=== PATIENT | female | born 1965 | race African-American/Black ===

== ENCOUNTER 2016-12-27 18:17 | Emergency (ER) | payer OTHER, MEDICAID ==
[~2016-12-27 18:17] MED LIST: ADVAI100I PO; CARV10; CLON0.5T16 PO; DUONI NEB; FLUT1INH; HYDR10SO PO; MAXZ PO; MONT10TA2 PO; NORV5TAB PO; ZITH250T PO
[2016-12-27 18:34] VITALS: BP 162/90; PULSE 95; RESP 16; TEMP 98.5; O2SAT 96
[2016-12-27] MEDS ORDERED: CARV12.5 PO (21:39)
[2016-12-27] MEDS ORDERED: ALBUAER3 INH (21:39)
[2016-12-27] MEDS ORDERED: MONT10TA2 PO (21:39)
[2016-12-27] MEDS ORDERED: TRIA1TAB5 PO (21:39)
[2016-12-27] MEDS ORDERED: ADVA500A INH (21:39)
[2016-12-27] MEDS ORDERED: IPRASOL INH (21:39)
[2016-12-27] MEDS ORDERED: HYDR-2374 PO (21:39)
[2016-12-27] MEDS ORDERED: LORA-475 PO (21:39)
[2016-12-27] MEDS ORDERED: NIFE10 PO (21:39)
[2016-12-27] MEDS ORDERED: DEXAMETHASONE SOD PHOS 4 MG/ML VIAL IM ONE (21:45)
[2016-12-27 21:50] VITALS: O2SAT 94
[2016-12-27] MEDS: RESP: ALBUTEROL 2.5 MG/IPRATROPIUM 0.5 MG NEB (SCH) INH (22:00)
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
[2016-12-27] MEDS ORDERED: PRED20 PO (22:21)
--- NOTE | 2016-12-28 09:26 | EKG ---
Date Performed: 12/27/2016 Time Performed: 21:24:13 PTAGE: 51 years EKG: Sinus rhythm NORMAL ECG PREVIOUS TRACING : 11/14/2014 17.10 DOCTOR: Xu Coley Interpretating Date/Time 12/28/2016 09:25:14
== END 2016-12-27 22:43 | disposition home or self-care (01) ==
LOC: NEPE 18:17
DX: J45.901 Unspecified asthma with (acute) exacerbation (principal); R52 Pain, unspecified; V89.2XXA Person injured in unspecified motor-vehicle accident, traffic, initial encounter
CPT/HCPCS: 93005; 94640; 94664; 96372; 99284; J1100

== ENCOUNTER 2017-08-28 17:26 | Observation (INO) | payer MEDICAID ==
[2017-08-28] VITALS (9 sets, daily range): BP systolic 136–174; BP diastolic 89–112; PULSE 83–93; RESP 16–22; TEMP 98.1–98.6; O2SAT 94–97
[~2017-08-28 17:26] MED LIST changes: +ADVA500A INH; -ADVAI100I PO; +ALBUAER3 INH; -CARV10; +CARV12.5 PO; -CLON0.5T16 PO; -DUONI NEB; -FLUT1INH; +HYDR-2374 PO; -HYDR10SO PO; +IPRASOL INH; +LORA-475 PO; +NIFE10 PO; -NORV5TAB PO; +TRIA1TAB5 PO; -ZITH250T PO
[2017-08-28] MEDS ORDERED: DOXY1CAP74 PO (17:42)
[2017-08-28] MEDS ORDERED: ALPR.5 PO (17:42)
[2017-08-28] MEDS ORDERED: SODIUM CHLORID 0.9% 500 ML INJ 500 ML IV ONE (17:45)
[2017-08-28] MEDS ORDERED: ASPIRIN 81 MG CHEW TAB PO ONE (17:45)
[2017-08-28] MEDS ORDERED: NITROGLYCERIN 2% OINT 1 GM PACKET TOP ONE (17:45)
[2017-08-28] MEDS ORDERED: ONDANSETRON HCL 4 MG/2 ML VIAL IV PUSH ONE (17:45)
[2017-08-28] MEDS ORDERED: SODIUM CHLORIDE 0.9% FLUSH 10 ML FLUSH IVF PRN (17:45)
[2017-08-28] MEDS ORDERED: MORPHINE SULFATE 4 MG/ML INJ IV PUSH ONE (17:45)
--- NOTE | 2017-08-28 18:01 | PD ---
HPI Chief Complaint: Cardiac Complaint Time Seen by Provider: 17:32 Travel History International Travel<30 days: No Contact w/Intl Traveler<30days: No Traveled to known affect area: No History of Present Illness HPI The patient is a 52-year-old female who presents to the emergency department for chest pain. The patient states she developed chest pain on Friday. The chest pain is substernal, nonradiating, and associated with shortness of breath. The patient describes the chest pain as sharp, dull, worse with walking and lying supine as well as inspiration. She does complain of mild shortness of breath and nausea but denies any vomiting. She does complain of feeling warm but denies any diaphoresis. The patient does have a history of hypertension, remote tobacco use, quit smoking 5-6 years ago. She denies any known history of coronary artery disease, diabetes, or hyperlipidemia. She denies any significant family medical history for early coronary artery disease or DC. The patient states she has never had a stress test in the past. She is currently followed by her primary physician, Dr. Dodge. The patient denies any history of pulmonary embolism, DVT, recent surgery, recent hospitalizations, or recent prolonged travel. Symptoms are moderate. The patient denies any recent edema or swelling to the lower extremities. PFSH Past Medical History Asthma: Yes Autoimmune Disease: No Blood Disorders: No Bipolar Disorder: Yes Anxiety: Yes Depression: No Heart Rhythm Problems: No Cancer: No Cardiovascular Problems: Yes (HTN) High Cholesterol: No Chemotherapy: No Chest Pain: No Congestive Heart Failure: No COPD: No Diabetes: No Diminished Hearing: No Endocrine: No Gastrointestinal Disorders: No GERD: Yes Genitourinary: No Headaches: Yes Hypertension: Yes Immune Disorder: No Implanted Vascular Access Dvce: No Musculoskeletal: Yes Neurologic: No Psychiatric: No Reproductive: No Respiratory: Yes Immunizations Current: Yes Pneumonia: Yes (fungal pneumonia, had bronchoscopy september 2016) Radiation Therapy: No Sickle Cell Disease: No Sleep Apnea: No Thyroid Disease: No PNEUMOCCOCAL Vaccine (Year): 2009 ?: Unknown Menopausal: Yes : 4 Para: 4 Tubal Ligation: Yes Past Surgical History Section: Yes Gynecologic Surgery: Yes Hysterectomy: Yes (partial) Other Surgery: Yes (PARTIAL HYSTERECTOMY, TUBAL, ) Social History Alcohol Use: No Tobacco Use: No Substance Use: No Allergies-Medications (Allergen,Severity, Reaction): Coded Allergies: acetaminophen (Unverified Allergy, Severe, RASH, 08/28/17) cephalexin (Unverified Allergy, Severe, RASH, 08/28/17) penicillin G (Unverified Allergy, Severe, Rash, 08/28/17) propoxyphene (Unverified Allergy, Severe, RASH, 08/28/17) tramadol (Unverified Allergy, Severe, Rash, 08/28/17) clindamycin (Unverified Allergy, Unknown, Itching, 08/28/17) SHARP ABD PAIN Reported Meds & Prescriptions Reported Meds & Active Scripts Active Reported Doxycycline 40 Mg Cap 40 Mg PO DAILY Xanax (Alprazolam) 0.5 Mg Tab 0.5 Mg PO Q4H PRN Proair Hfa 8.5 GM Inh (Albuterol Sulfate) 90 Mcg/Act Aer 2 Puff INH Q4-6H PRN 108 mcg/actuation Triamterene-Hydrochlorothiazide 75-50 Mg Tab 1 Tab PO DAILY Hydrocodone-Acetaminophen 10-300 Tab 1 Tab PO Q4H PRN Advair Diskus Inh (Fluticasone-Salmeterol Inh) 500-50 Mcg/Blist Aer 1 Puff INH BID Rinse mouth after use. Coreg (Carvedilol) 12.5 Mg Tab 10 Mg PO BID Duoneb (Ipratropium-Albuterol Neb) 0.5-2.5 Mg/3 Ml Neb 1 Nebule INH Q6HR NEB Review of Systems Except as stated in HPI: all other systems reviewed are Neg General / Constitutional: No: Fever HENT: No: Lightheadedness Cardiovascular: Positive: Chest Pain or Discomfort, Dyspnea on exertion Respiratory: Positive: Shortness of Breath Gastrointestinal: Positive: Nausea, Indigestion (History of GERD with different symptoms), No: Vomiting Musculoskeletal: No: Weakness, Edema Neurologic: No: Dizziness Physical Exam Narrative GENERAL: Awake, alert, pleasant 52-year-old female who appears her stated age and is in no acute respiratory distress. SKIN: Focused skin assessment warm/dry. Multiple tattoos noted. HEAD: Atraumatic. Normocephalic. EYES: Pupils equal and round. No scleral icterus. No injection or drainage. ENT: No nasal bleeding or discharge. Mucous membranes pink and moist. NECK: Trachea midline. No JVD. CARDIOVASCULAR: Regular rate and rhythm. No murmur appreciated. RESPIRATORY: No accessory muscle use. Prolonged expiratory phase with scattered wheezes. GASTROINTESTINAL: Abdomen soft, non-tender, nondistended. No rebound tenderness. MUSCULOSKELETAL: No obvious deformities. No clubbing. No cyanosis. No edema. Calves are soft bilaterally. NEUROLOGICAL: Awake and alert. No obvious cranial nerve deficits. Motor grossly within normal limits. Normal speech. PSYCHIATRIC: Appropriate mood and affect; insight and judgment normal. Data Data Last Documented VS Vital Signs Date Time Temp Pulse Resp B/P (MAP) Pulse Ox O2 Delivery O2 Flow Rate FiO2 08/28/17 18:05 156/102 (120) 08/28/17 17:54 96 Room Air 08/28/17 17:28 98.6 93 22 Orders Orders Electrocardiogram (08/28/17 17:42) Ckmb (Isoenzyme) Profile (08/28/17 17:42) Complete Blood Count With Diff (08/28/17 17:42) Comprehensive Metabolic Panel (08/28/17 17:42) D-Dimer (08/28/17 17:42) Magnesium (Mg) (08/28/17 17:42) Prothrombin Time / Inr (Pt) (08/28/17 17:42) Act Partial Throm Time (Ptt) (08/28/17 17:42) Troponin I (08/28/17 17:42) Lipase (08/28/17 17:42) Chest, Single Ap (08/28/17 17:42) Ecg Monitoring (08/28/17 17:42) Bilateral Bp Monitoring (08/28/17 17:42) Iv Access Insert/Monitor (08/28/17 17:42) Oximetry (08/28/17 17:42) Oxygen Administration (08/28/17 17:42) Aspirin Chew (Aspirin Chew) (08/28/17 17:45) Morphine Inj (Morphine Inj) (08/28/17 17:45) Nitroglycerin 2% Oint (Nitroglycerin 2% (08/28/17 17:45) Sodium Chloride 0.9% Flush (Ns Flush) (08/28/17 17:45) Sodium Chlorid 0.9% 500 Ml Inj (Ns 500 M (08/28/17 17:45) Ondansetron Inj (Zofran Inj) (08/28/17 17:45) Ct Pulmonary Angiogram (08/28/17 ) Labs Laboratory Tests Test 08/28/17 17:49 White Blood Count 11.4 TH/MM3 Red Blood Count 5.22 MIL/MM3 Hemoglobin 13.5 GM/DL Hematocrit 41.7 % Mean Corpuscular Volume 79.9 FL Mean Corpuscular Hemoglobin 25.8 PG Mean Corpuscular Hemoglobin Concent 32.3 % Red Cell Distribution Width 17.6 % Platelet Count 341 TH/MM3 Mean Platelet Volume 8.6 FL Neutrophils (%) (Auto) 76.1 % Lymphocytes (%) (Auto) 14.1 % Monocytes (%) (Auto) 8.2 % Eosinophils (%) (Auto) 1.1 % Basophils (%) (Auto) 0.5 % Neutrophils # (Auto) 8.7 TH/MM3 Lymphocytes # (Auto) 1.6 TH/MM3 Monocytes # (Auto) 0.9 TH/MM3 Eosinophils # (Auto) 0.1 TH/MM3 Basophils # (Auto) 0.1 TH/MM3 CBC Comment DIFF FINAL Differential Comment Prothrombin Time 10.5 SEC Prothromb Time International Ratio 1.0 RATIO Activated Partial Thromboplast Time 29.4 SEC D-Dimer Quantitative (PE/DVT) 1.68 MG/L FEU Alanine Aminotransferase (ALT/SGPT) 20 U/L MDM Medical Decision Making Medical Screen Exam Complete: Yes Emergency Medical Condition: Yes Medical Record Reviewed: Yes Interpretation(s) EKG reveals normal sinus rhythm with a rate of 93. Nonspecific T-wave changes. Differential Diagnosis Differential diagnosis includes acute coronary syndrome, pulmonary embolism GERD , esophageal spasm, pericarditis, myocarditis, pancreatitis, musculoskeletal pain, asthma exacerbation. Narrative Course IV was established, labs are drawn and sent, and the patient was placed on cardiac telemetry monitoring and continuous pulse oximetry monitoring. EKG was ordered and interpreted. 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 Chest x-ray was obtained. The patient did have some wheezing, however, she states this is different than her normal asthma exacerbations. She was administered 1 DuoNeb, steroids were held. D-dimer was sent to lab as patient did have elevated heart rate with shortness of breath and pleuritic chest pain. The patient's d-dimer was positive, therefore, CT pulmonary angiogram was ordered. Patient was signed out to the oncoming physician at 7 AM with laboratory evaluation and pulmonary angiogram Diagnosis Primary Impression: Chest pain Qualified Codes: R07.9 - Chest pain, unspecified Condition: Stable Livan Castellano MD August 28, 2017 18:01
[2017-08-28 18:22] LABS: AUTOMATED NEUTROPHIL # 8.7 TH/MM3 (1.8-7.7); BASOPHIL # 0.1 TH/MM3 (0-0.2); BASOPHIL % 0.5 % (0.0-2.0); EOSINOPHIL # 0.1 TH/MM3 (0-0.4); EOSINOPHIL % 1.1 % (0.0-4.0); HEMATOCRIT 41.7 % (35.0-46.0); HEMOGLOBIN 13.5 GM/DL (11.6-15.3); LYMPH % 14.1 % (9.0-44.0); LYMPHOCYTE # 1.6 TH/MM3 (1.0-4.8); MEAN CELL VOLUME 79.9 FL (80.0-100.0); MEAN CORPUSCULAR HEMOGLOBIN 25.8 PG (27.0-34.0); MEAN CORPUSCULAR HGB CONC 32.3 % (32.0-36.0); MEAN PLATELET VOLUME 8.6 FL (7.0-11.0); MONO % 8.2 % (0.0-8.0); MONOCYTE # 0.9 TH/MM3 (0-0.9); NEUT % 76.1 % (16.0-70.0); PLATELET COUNT 341 TH/MM3 (150-450); RED BLOOD COUNT 5.22 MIL/MM3 (4.00-5.30); RED CELL DISTRIBUTION WIDTH 17.6 % (11.6-17.2); WHITE BLOOD COUNT 11.4 TH/MM3 (4.0-11.0)
[2017-08-28 18:36] LABS: PROTHROMBIN TIME - PATIENT 10.5 SEC (9.8-11.6)
[2017-08-28 18:39] LABS: D-DIMER 1.68 MG/L FEU (0.00-0.50)
[2017-08-28 18:42] LABS: ALT (GPT) 20 U/L (10-53)
[2017-08-28 18:46] LABS: ALKALINE PHOSPHATASE 123 U/L (45-117); TOTAL BILIRUBIN ADULT 0.3 MG/DL (0.2-1.0); TOTAL PROTEIN 8.2 GM/DL (6.4-8.2); TROPONIN I LESS THAN 0.02 NG/ML (0.02-0.05)
--- NOTE | 2017-08-28 18:54 | RADRPT ---
EXAM DATE/TIME: 08/28/2017 18:19 [facility] COMPARISON: No previous studies available for comparison. INDICATIONS : Chest pain. MEDICAL HISTORY : Hypertension. SURGICAL HISTORY : None. ENCOUNTER: Initial ACUITY: 1 day PAIN SCORE: 9/10 LOCATION: Bilateral chest FINDINGS: A single view of the chest demonstrates cardiomegaly. Tortuous aorta. Mild basilar atelectasis. No ef fusion or pneumothorax. CONCLUSION: 1. Cardiomegaly with minimal basilar atelectasis. Tortuous aorta. Dexter Stern MD on August 28, 2017 at 18:50 Board Certified Radiologist. This report was verified electronically.
--- NOTE | 2017-08-28 19:19 | PD ---
Physical Exam Date Seen by Provider: August 28, 2017 Time Seen by Provider: 19:30 Narrative pt signed out to me at 700pm and I am to follow the CTA and admit for CP if CTA negative for PE .. The patient is a 52-year-old female who presents to the emergency department for chest pain. The patient states she developed chest pain on Friday. and history of Asthma but this CP not tightness like her regular Asthma tightness D-Dimer sent and was negative and CTA ordered by Gray for PE rule out Data Data Last Documented VS Vital Signs Date Time Temp Pulse Resp B/P (MAP) Pulse Ox O2 Delivery O2 Flow Rate FiO2 08/28/17 20:49 83 18 152/102 (119) 97 Room Air 08/28/17 17:28 98.6 Orders Orders Electrocardiogram (08/28/17 17:42) Ckmb (Isoenzyme) Profile (08/28/17 17:42) Complete Blood Count With Diff (08/28/17 17:42) Comprehensive Metabolic Panel (08/28/17 17:42) D-Dimer (08/28/17 17:42) Magnesium (Mg) (08/28/17 17:42) Prothrombin Time / Inr (Pt) (08/28/17 17:42) Act Partial Throm Time (Ptt) (08/28/17 17:42) Troponin I (08/28/17 17:42) Lipase (08/28/17 17:42) Chest, Single Ap (08/28/17 17:42) Ecg Monitoring (08/28/17 17:42) Bilateral Bp Monitoring (08/28/17 17:42) Iv Access Insert/Monitor (08/28/17 17:42) Oximetry (08/28/17 17:42) Oxygen Administration (08/28/17 17:42) Aspirin Chew (Aspirin Chew) (08/28/17 17:45) Morphine Inj (Morphine Inj) (08/28/17 17:45) Nitroglycerin 2% Oint (Nitroglycerin 2% (08/28/17 17:45) Sodium Chloride 0.9% Flush (Ns Flush) (08/28/17 17:45) Sodium Chlorid 0.9% 500 Ml Inj (Ns 500 M (08/28/17 17:45) Ondansetron Inj (Zofran Inj) (08/28/17 17:45) Ct Pulmonary Angiogram (08/28/17 ) CKMB (08/28/17 17:49) CKMB% (08/28/17 17:49) Iohexol 350 Inj (Omnipaque 350 Inj) (08/28/17 20:26) Levofloxacin 750 Mg Premix Inj (Levaquin (08/28/17 21:00) Ketorolac Inj (Toradol Inj) (08/28/17 21:15) Troponin I (08/28/17 21:05) Electrocardiogram (08/28/17 ) Ckmb (Isoenzyme) Profile (08/28/17 21:05) Admit Order (Ed Use Only) (08/28/17 22:00) CKMB (08/28/17 21:05) CKMB% (08/28/17 21:05) Labs Laboratory Tests Test 08/28/17 17:49 08/28/17 21:05 White Blood Count 11.4 TH/MM3 Red Blood Count 5.22 MIL/MM3 Hemoglobin 13.5 GM/DL Hematocrit 41.7 % Mean Corpuscular Volume 79.9 FL Mean Corpuscular Hemoglobin 25.8 PG Mean Corpuscular Hemoglobin Concent 32.3 % Red Cell Distribution Width 17.6 % Platelet Count 341 TH/MM3 Mean Platelet Volume 8.6 FL Neutrophils (%) (Auto) 76.1 % Lymphocytes (%) (Auto) 14.1 % Monocytes (%) (Auto) 8.2 % Eosinophils (%) (Auto) 1.1 % Basophils (%) (Auto) 0.5 % Neutrophils # (Auto) 8.7 TH/MM3 Lymphocytes # (Auto) 1.6 TH/MM3 Monocytes # (Auto) 0.9 TH/MM3 Eosinophils # (Auto) 0.1 TH/MM3 Basophils # (Auto) 0.1 TH/MM3 CBC Comment DIFF FINAL Differential Comment Prothrombin Time 10.5 SEC Prothromb Time International Ratio 1.0 RATIO Activated Partial Thromboplast Time 29.4 SEC D-Dimer Quantitative (PE/DVT) 1.68 MG/L FEU Blood Urea Nitrogen 19 MG/DL Creatinine 1.07 MG/DL Random Glucose 75 MG/DL Total Protein 8.2 GM/DL Albumin 3.8 GM/DL Calcium Level 10.2 MG/DL Magnesium Level 2.0 MG/DL Alkaline Phosphatase 123 U/L Aspartate Amino Transf (AST/SGOT) 23 U/L Alanine Aminotransferase (ALT/SGPT) 20 U/L Total Bilirubin 0.3 MG/DL Sodium Level 139 MEQ/L Potassium Level 3.4 MEQ/L Chloride Level 102 MEQ/L Carbon Dioxide Level 27.8 MEQ/L Anion Gap 9 MEQ/L Estimat Glomerular Filtration Rate 65 ML/MIN Total Creatine Kinase 224 U/L 169 U/L Creatine Kinase MB 3.8 NG/ML 3.1 NG/ML Creatine Kinase MB % 1.7 % Troponin I LESS THAN 0.02 NG/ML LESS THAN 0.02 NG/ML Lipase 139 U/L MDM Supervised Visit with ELISA: No Narrative Course PNA NO PE CP could be PNA or both cad ischemia and PNA admit CP center for serial trop cards consult Diagnosis Primary Impression: Chest pain Additional Impression: Pneumonia Qualified Codes: J18.9 - Pneumonia, unspecified organism Admitting Information Admitting Physician Requests: Observation Condition: Stable Jayme George MD August 28, 2017 19:19
[2017-08-28 19:27] LABS: ALBUMIN 3.8 GM/DL (3.4-5.0); AST (GOT) 23 U/L (15-37); BICARBONATE 27.8 MEQ/L (21.0-32.0); BLOOD UREA NITROGEN 19 MG/DL (7-18); CALCIUM 10.2 MG/DL (8.5-10.1); CHLORIDE 102 MEQ/L (98-107); CREATININE 1.07 MG/DL (0.50-1.00); GLOMERULAR FILTRATION RATE 65 ML/MIN (>89); GLUCOSE,RANDOM 75 MG/DL (74-106); SODIUM (NA) 139 MEQ/L (136-145)
[2017-08-28] MEDS ORDERED: IOHEXOL 350 MG/ML 10 ML VIAL (for RAD DIAG) IVCONTRAST ONE (20:26)
--- NOTE | 2017-08-28 20:28 | RADRPT ---
EXAM DATE/TIME: 08/28/2017 19:52 [facility] COMPARISON: No previous studies available for comparison. INDICATIONS : Chest pain IV CONTRAST: 70 cc Omnipaque 350 (iohexol) IV RADIATION DOSE: 16.20 CTDIvol (mGy) MEDICAL HISTORY : Hypertension. Asthma SURGICAL HISTORY : Hysterectomy. Tubal ligation. section. ENCOUNTER: Initial ACUITY: 3 days PAIN SCALE: 9/10 LOCATION: Bilateral chest TECHNIQUE: Volumetric scanning of the chest was performed using a pulmonary embolism protocol MIP images were re constructed. Using automated exposure control and adjustment of the mA and/or kV according to patien t size, radiation dose was kept as low as reasonably achievable to obtain optimal diagnostic quality images. DICOM format image data is available electronically for review and comparison. Follow-up recommendations for detected pulmonary nodules are based at a minimum on nodule size and pa tient risk factors according to Fleischner Society Guidelines. FINDINGS: No filling defects identified to suggest embolic disease. There is patchy airspace consolidation in b oth lungs predominantly in the right middle lobe and lingula and also at the lung bases. Is also some distal airway disease and mild bronchiectasis. Tortuous aorta. No pleural or pericardial effusion. CONCLUSION: 1. Negative for pulmonary embolus. 2. Patchy bronchopneumonia in the lungs. Mild bronchiectasis and distal airway disease. Dexter Stern MD on August 28, 2017 at 20:23 Board Certified Radiologist. This report was verified electronically.
[2017-08-28] MEDS ORDERED: LEVOFLOXACIN 750 MG PREMIX INJ 150 ML IV ONE (21:00)
[2017-08-28] MEDS ORDERED: KETOROLAC TROMETHAMINE 30 MG/ML (IVP) VIAL IV PUSH ONE (21:15)
[2017-08-28 22:06] LABS: TROPONIN I LESS THAN 0.02 NG/ML (0.02-0.05)
[2017-08-28] MEDS ORDERED: SODIUM CHLORIDE 0.9% FLUSH 10 ML FLUSH IV FLUSH PRN (23:15)
[2017-08-29] MEDS ORDERED: ONDANSETRON HCL 4 MG/2 ML VIAL IV PUSH PRN (00:15)
[2017-08-29 01:55] LABS: TROPONIN I LESS THAN 0.02 NG/ML (0.02-0.05)
[2017-08-29 02:14] VITALS: PULSE 78
[2017-08-29 04:05] VITALS: BP 152/113; PULSE 86; RESP 17; TEMP 98.1; O2SAT 95
[2017-08-29] MEDS ORDERED: MORPHINE SULFATE 4 MG/ML INJ IV PRN (04:15)
[2017-08-29] MEDS ORDERED: IBUPROFEN 400 MG TAB PO PRN (04:15)
[2017-08-29 04:30] VITALS: PULSE 77
[2017-08-29 07:09] VITALS: BP 134/96; PULSE 80; RESP 20; TEMP 98; O2SAT 96
[2017-08-29] MEDS ORDERED: NITROGLYCERIN 0.4 MG SL 25 TABS/BTL SL PRN (07:45)
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
[2017-08-29] MEDS ORDERED: ASPIRIN 325 MG TAB PO SCH (09:00)
[2017-08-29] MEDS ORDERED: SODIUM CHLORIDE 0.9% FLUSH 10 ML FLUSH IV FLUSH SCH (09:00)
[2017-08-29] MEDS ORDERED: KETOROLAC TROMETHAMINE 30 MG/ML (IVP) VIAL IV PUSH ONE (09:15)
[2017-08-29] MEDS ORDERED: RESP: ALBUTEROL 2.5 MG/3 ML NEB (PRN) NEB (10:30)
--- NOTE | 2017-08-29 10:49 | HHI.DCPOC ---
Discharge Care Plan Diagnosis: (1) Atypical chest pain (2) History of asthma (3) History of fungal pneumonia (4) Pneumonia Goals to Promote Your Health * To prevent worsening of your condition and complications * To maintain your health at the optimal level Directions to Meet Your Goals Take your medications as prescribed Follow your dietary instruction Follow activity as directed Keep your appointments as scheduled Take your immunizations and boosters as scheduled If your symptoms worsen call your PCP, if no PCP go to Urgent Care Center or Emergency Room Smoking is Dangerous to Your Health. Avoid second hand smoke Call the 24-hour hour crisis hotline for domestic abuse at Donna Marie August 29, 2017 10:49
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
--- NOTE | 2017-08-29 15:44 | EKG ---
Date Performed: 08/28/2017 Time Performed: 23:55:51 PTAGE: 52 years EKG: Sinus rhythm NORMAL ECG PREVIOUS TRACING : 08/28/2017 21.12 DOCTOR: Oliver Blanco Interpretating Date/Time 08/29/2017 15:43:14
--- NOTE | 2017-08-29 15:45 | EKG ---
Date Performed: 08/28/2017 Time Performed: 21:12:28 PTAGE: 52 years EKG: Sinus rhythm NORMAL ECG PREVIOUS TRACING : 08/28/2017 17.58 DOCTOR: Oliver Blanco Interpretating Date/Time 08/29/2017 15:44:13
--- NOTE | 2017-08-29 15:46 | EKG ---
Date Performed: 08/28/2017 Time Performed: 17:58:32 PTAGE: 52 years EKG: Sinus rhythm BORDERLINE LEFT AXIS DEVIATION NONSPECIFIC T-WAVE ABNORMALITY BORDERLINE ECG No significant change PREVIOUS TRACING : 12/27/2016 21.24 DOCTOR: Oliver Blanco Interpretating Date/Time 08/29/2017 15:45:34
== END 2017-08-29 12:06 | disposition home or self-care (01) ==
LOC: NEPE 17:26 → NEDA 22:03 → NEPFCDU 23:10
DX: R07.89 Other chest pain (principal); J18.9 Pneumonia, unspecified organism; M79.1 Myalgia; R11.0 Nausea; Z87.891 Personal history of nicotine dependence; I10 Essential (primary) hypertension; F41.9 Anxiety disorder, unspecified; K21.9 Gastro-esophageal reflux disease without esophagitis; R51 Headache; G89.29 Other chronic pain; M54.5 Low back pain
CPT/HCPCS: 71045; 71275; 80053; 82550; 82552; 83690; 83735; 84484; 85025; 85379; 85610; 85730; 93005; 94664; 96361; 96365; 96366; 96375; 96376; 99285; G0378; J1885; J1956; J2270; J2405; J7040; J7613; Q9967